=== PATIENT | female | born 1945 | race Caucasian/White ===

== ENCOUNTER 2017-07-02 21:37 | Inpatient (IN) | payer OTHER ==
[~2017-07-02] VITALS: Ht 152.4 cm; Wt 74.8 kg
[2017-07-02 23:30] LABS: CALCIUM 8.3 mg/dL (8.5-10.1); CARBON DIOXIDE 23.5 mmol/L (21-32); CREATININE SERUM 1.1 mg/dL (0.6-1.0); POTASSIUM SERUM 3.6 mmol/L (3.5-5.1)
[2017-07-02 23:33] LABS: BASOPHIL % 0.5 % (0-2); PLATELET COUNT 187 x10^3mcL (130-400); RED CELL DISTRIBUTION WIDTH 13.6 % (11.5-14.5)
[2017-07-02 23:41] LABS: ALBUMIN 3.8 g/dL (3.4-5.0); BILIRUBIN TOTAL 0.85 mg/dL (0.20-1.00); TOTAL PROTEIN, SERUM 7.9 g/dL (6.4-8.2)
[2017-07-02 23:42] LABS: CK-MB 0.8 ng/mL (0-3.6)
[2017-07-02 23:47] LABS: microscopic required? YES; urine erythrocyte TRACE (NEGATIVE)
[2017-07-03 02:32] VITALS: BP 158/93
[2017-07-03 03:13] LABS: MAGNESIUM 1.7 mg/dL (1.8-2.4); PHOSPHOROUS 3.6 mg/dL (2.5-4.9)
[2017-07-03 03:23] LABS: FREE T4 0.94 ng/dL (0.76-1.46); FREE THYROXINE INDEX 2.9 ug/dL (1.4-4.5); T3 TOTAL 0.69 ng/mL; T4(THYROXINE) 8.5 ug/dL (4.7-13.3)
[2017-07-03 03:36] LABS: CHOLESTEROL/HDL RATIO 4.3
== END 2017-07-03 03:38 | disposition left against medical advice (07) | DRG 871 ==
LOC: ED 21:37 → DU 07-03 01:53
PROVIDERS: Emergency Medicine; ADMIT Family Medicine
DX: A41.9 Sepsis, unspecified organism (principal); N17.0 Acute kidney failure with tubular necrosis; K57.32 Diverticulitis of large intestine without perforation or abscess without bleeding; E87.1 Hypo-osmolality and hyponatremia; J06.9 Acute upper respiratory infection, unspecified; R65.20 Severe sepsis without septic shock; I16.0 Hypertensive urgency; I10 Essential (primary) hypertension; F17.210 Nicotine dependence, cigarettes, uncomplicated; F10.10 Alcohol abuse, uncomplicated; Z68.32 Body mass index [BMI] 32.0-32.9, adult
CPT/HCPCS: 83880; 84439; 87804; J7030

== ENCOUNTER 2017-10-15 02:29 | Emergency (ER) | payer OTHER ==
[~2017-10-15] VITALS: Ht 152.4 cm; Wt 68.0 kg
[2017-10-15 02:41] VITALS: Ht 152.4 cm; Wt 68.0 kg
[2017-10-15 03:33] LABS: BASOPHIL % 0.5 % (0-2); PLATELET COUNT 209 x10^3mcL (130-400); RED CELL DISTRIBUTION WIDTH 13.6 % (11.5-14.5)
[2017-10-15 03:35] LABS: CARBON DIOXIDE 26.4 mmol/L (21-32); CHLORIDE SERUM 104 mmol/L (98-107); CREATININE SERUM 0.8 mg/dL (0.6-1.0); GFR1 > 60 mL/min; GLUCOSE SERUM 117 mg/dL (74-106); POTASSIUM SERUM 3.5 mmol/L (3.5-5.1); SODIUM SERUM 141 mmol/L (136-145)
[2017-10-15 03:42] LABS: ALBUMIN 3.8 g/dL (3.4-5.0); ALKALINE PHOSPHATASE 78 U/L (46-116); ALT/SGPT 19 U/L (14-59); AST/SGOT 20 U/L (15-37); BILIRUBIN TOTAL 0.49 mg/dL (0.20-1.00); TOTAL PROTEIN, SERUM 7.9 g/dL (6.4-8.2)
[2017-10-15 06:10] VITALS: BP 204/104
== END 2017-10-15 06:10 | disposition home or self-care (01) ==
LOC: ED 02:29
PROVIDERS: Emergency Medicine
DX: J44.1 Chronic obstructive pulmonary disease with (acute) exacerbation (principal); I10 Essential (primary) hypertension; E78.5 Hyperlipidemia, unspecified; E78.00 Pure hypercholesterolemia, unspecified
CPT/HCPCS: 83880; J2930; J3490; J7030; J7040; J7613; J7644; Q0092; Q9967

== ENCOUNTER 2017-10-23 19:17 | Emergency (ER) | payer OTHER ==
[~2017-10-23] VITALS: Ht 154.9 cm; Wt 65.0 kg
[2017-10-23 20:17] VITALS: BP 155/68
== END 2017-10-23 20:33 | disposition home or self-care (01) ==
LOC: ED 19:17
DX: J40 Bronchitis, not specified as acute or chronic (principal); I10 Essential (primary) hypertension; E78.00 Pure hypercholesterolemia, unspecified; R10.32 Left lower quadrant pain
CPT/HCPCS: Q0092